=== PATIENT | female | born 1960 ===

== ENCOUNTER 2017-10-11 12:40 | Inpatient (IN) | payer OTHER ==
[~2017-10-11] VITALS: Ht 165.1 cm; Wt 61.2 kg
[2017-10-11] MEDS ORDERED: ACET-2605 PO (12:50)
[2017-10-11] MEDS ORDERED: NITR100C11 PO (12:51)
[2017-10-11] MEDS ORDERED: PHEN-705 PO (12:51)
[2017-10-11] MEDS ORDERED: ONDANSETRON IV *ER 4 MG/2 ML VIAL IV ONE (13:00)
[2017-10-11] MEDS ORDERED: IV NS 1000 ML 1,000 ML IV ONE (13:00)
[2017-10-11] MEDS ORDERED: ACETAMINOPHEN 650 MG/20.3 ML LIQUID UDC PO ONE (13:00)
[2017-10-11 13:18] LABS: *BLOOD, URINE 2+ (NEGATIVE); *CLARITY,URINE CLOUDY (CLEAR); *COLOR,URINE ORANGE (YELLOW); *KETONES,URINE 2+ (NEGATIVE); *PROTEIN,URINE 2+ (NEGATIVE); LEUKOCYTE ESTERASE ,URINE 2+ (NEGATIVE); NITRITE, URINE POSITIVE (NEGATIVE); PH,URINE 5.5 (5.0-8.0); UGLUCOSE TRACE (NEGATIVE)
[2017-10-11 13:20] LABS: BASOPHILS % (AUTO) 0.2 % (0.0-2.0); EOSINOPHILS % (AUTO) 0.1 % (0.0-7.0); LYMPHOCYTES # (AUTO) 0.9 K/uL (20.0-40.0); LYMPHOCYTES % (AUTO) 11.2 % (20.5-51.5); MEAN CORPUSCULAR HEMOGLOBIN 29.1 uug (24.7-32.8); MEAN CORPUSCULAR HGB CONC 34 g/dL (32.3-35.6); MEAN CORPUSCULAR VOLUME 85.2 fL (75.5-95.3); MONOCYTES # (AUTO) 0.5 K/uL (2.0-10.0); MONOCYTES % (AUTO) 6.7 % (0.0-11.0); NEUTROPHILS # (AUTO) 6.5 K/uL (1.8-8.9); NEUTROPHILS % (AUTO) 81.8 % (38.5-71.5); PLATELET COUNT (AUTO) 160 K/uL (179-408); RED BLOOD CELL COUNT(AUTO) 4.46 MIL/uL (3.63-4.92); WHITE BLOOD COUNT (AUTO) 7.9 K/uL (3.8-11.8)
[2017-10-11] MEDS ORDERED: ACETAMINOPHEN ES 500 MG TABLET ONE ×2 (13:24→13:25)
[2017-10-11] MEDS ORDERED: ONDANSETRON 4 MG/2 ML VIAL ONE (13:24)
[2017-10-11 13:25] LABS: *BILIRUBIN,URIN NEGATIVE (NEGATIVE)
[2017-10-11 13:26] LABS: CREATININE 1.1 mg/dL (0.6-1.3); POTASSIUM 3.3 mmol/L (3.5-5.1)
[2017-10-11 13:31] LABS: TOTAL PROTEIN, SERUM 7.8 g/dL (6.4-8.2)
[2017-10-11 13:34] LABS: BACTERIA,URINE MODERATE /HPF (NONE SEEN); SQUAMOUS EPITHELIAL CELL,UR FEW /HPF (NONE SEEN); WBC,URINE TNTC /HPF (0-3)
[2017-10-11] MEDS ORDERED: CEFTRIAXONE 1 G in IV DEXTROSE 5% 50 ML IV ONE (14:30)
[2017-10-11] MEDS ORDERED: IV NS 1000 ML 1,000 ML IV PRN ×2 (14:45→16:01)
[2017-10-11] MEDS ORDERED: POTASSIUM CHLORIDE 20 MEQ TAB.PRT.SR PO ONE (14:45)
[2017-10-11] MEDS ORDERED: CEFTRIAXONE 1 G VIAL ONE (14:49)
--- NOTE | 2017-10-11 14:55 | NUR ---
PT WALKED TO BATHROOM W/ STEADY GAIT.
[2017-10-11] MEDS ORDERED: POTASSIUM CHLORIDE 20 MEQ TAB.PRT.SR ONE (15:00)
[2017-10-11 16:02] VITALS: BP 85/50
[2017-10-11 16:04] VITALS: BP 85/50
[2017-10-11] MEDS ORDERED: HYDROCODONE/APAP 5-325MG TABLET PO PRN (16:15)
[2017-10-11] MEDS ORDERED: HYDROCODONE/APAP 10-325 MG TABLET PO PRN (16:15)
[2017-10-11] MEDS ORDERED: ONDANSETRON 4 MG/2 ML VIAL IV PRN (16:15)
[2017-10-11] MEDS ORDERED: Z GUARD REMEDY PASTE 57 GM TUBE TOP PRN (16:15)
[2017-10-11] MEDS ORDERED: MAGNESIUM HYDROXIDE 30 ML LIQUID UDC PO PRN (16:15)
[2017-10-11] MEDS: CEFTRIAXONE 1 G in IV DEXTROSE 5% 50 ML IV SCH (18:31)
--- NOTE | 2017-10-11 18:49 | NUR ---
Patient admitted from ER alert and oriented. no pain noted. Frequently urinated and clear urine output no pain.
[2017-10-11 20:00] VITALS: BP 85/45
--- NOTE | 2017-10-11 20:00 | NUR ---
Pt noted to have BP 85/45 HR 75. Pt is alert, responsive, no c/o of SOB/chest pain/nausea/vomiting. HOB down as tolerated. MD notified. Bolus 500ml given per ZOLTAN Issa's order. Will reassess and monitor.
[2017-10-11 20:30] VITALS: BP 92/46
--- NOTE | 2017-10-11 20:30 | NUR ---
Reassessed pt's BP 92/46. Interventions effective. Patient is alert and responsive, in no distress. MD notified.
[2017-10-11] MEDS ORDERED: IV NORMAL SALINE 500 ML IV ONE (20:45)
[2017-10-11] MEDS: MORPHINE SULFATE 2 MG/1 ML DISP.SYRIN IV PRN (23:50)
--- NOTE | 2017-10-11 23:50 | NUR ---
Pt refused morphine. Prefers tylenol instead. Wasted morphine, witness by pharmacist in charge.
[2017-10-12] MEDS: MORPHINE SULFATE 2 MG/1 ML DISP.SYRIN IV PRN
[2017-10-12] MEDS: ACETAMINOPHEN 325 MG TABLET PO PRN ×3 (00:01→21:55)
[2017-10-12 05:21] VITALS: BP 92/47
--- NOTE | 2017-10-12 06:00 | NUR ---
Pt slept intermittently, in no acute distress. Tylenol administered effective, patient was able to sleep after taking Tylenol, no c/o of pain. Close monitoring of BP, MD aware. IVF infusing, no infiltration noted. Strict intake/output as ordered. Safety measures in place, call light within reach. Will continue to monitor.
[2017-10-12 06:57] LABS: BILIRUBIN,TOTAL 0.5 mg/dL (0.2-1.0); CREATININE 0.9 mg/dL (0.6-1.3); MAGNESIUM 1.9 mg/dL (1.8-2.4); PHOSPHOROUS 2.8 mg/dL (2.5-4.9); POTASSIUM 3.8 mmol/L (3.5-5.1); TOTAL PROTEIN, SERUM 6.2 g/dL (6.4-8.2)
[2017-10-12 06:58] LABS: BASOPHILS % (AUTO) 0.2 % (0.0-2.0); EOSINOPHILS # (AUTO) 0.1 K/uL (0.0-0.7); EOSINOPHILS % (AUTO) 1.1 % (0.0-7.0); HEMOGLOBIN 11.2 g/dL (10.9-14.3); LYMPHOCYTES % (AUTO) 27.5 % (20.5-51.5); MEAN CORPUSCULAR HGB CONC 34 g/dL (32.3-35.6); MEAN CORPUSCULAR VOLUME 85.9 fL (75.5-95.3); MONOCYTES # (AUTO) 0.9 K/uL (2.0-10.0); MONOCYTES % (AUTO) 12.8 % (0.0-11.0); NEUTROPHILS # (AUTO) 4.2 K/uL (1.8-8.9); NEUTROPHILS % (AUTO) 58.4 % (38.5-71.5); RED BLOOD CELL COUNT(AUTO) 3.87 MIL/uL (3.63-4.92); WHITE BLOOD COUNT (AUTO) 7.1 K/uL (3.8-11.8)
[2017-10-12 07:09] LABS: HEMATOCRIT 33.3 % (31.2-41.9)
[2017-10-12 07:10] LABS: PLATELET COUNT (AUTO) 134 K/uL (179-408)
[2017-10-12 09:52] LABS: BAND % (MANUAL) 2 % (0-10); EOSINOPHILS % (MANUAL) 1 % (0-8); LYMPHOCYTES % (MANUAL) 34 % (20-40); MONOCYTES % (MANUAL) 8 % (2-10); NEUTROPHILS % (MANUAL) 54 % (42-75)
[2017-10-12 09:58] LABS: REACTIVE LYMPHOCYTES 1 % (0-0)
[2017-10-12] MEDS ORDERED: IV NS 1000 ML 1,000 ML IV PRN (10:18)
[2017-10-12 11:16] VITALS: BP 94/57
[2017-10-12 15:24] VITALS: BP 102/40
[2017-10-12] MEDS: CEFTRIAXONE 1 G in IV DEXTROSE 5% 50 ML IV SCH (17:23)
[2017-10-12 19:05] VITALS: BP 102/56
--- NOTE | 2017-10-13 | NUR ---
Pt's IV infiltrated, IV site intact, no redness. Pt refused to have another IV insertion. Pt stated "I will be discharged today so what is the point?" "I've been given a lot of bags of fluid, I've had enough". Discussed pt regarding importance of an IV access but pt still refused. Pt's intake of fluid is adequate and pt is urinating. Will continue to monitor.
[2017-10-13 04:05] VITALS: BP 92/44
--- NOTE | 2017-10-13 05:56 | NUR ---
Pt slept intermittently, in no acute distress. No significant change of condition throughout shift. VS stable, pt afebrile. Safety measures in place. Will continue to monitor.
[2017-10-13 07:19] LABS: CREATININE 0.7 mg/dL (0.6-1.3); POTASSIUM 3.8 mmol/L (3.5-5.1)
--- NOTE | 2017-10-13 07:30 | NUR ---
PT RECEIVED IN BED SLEEPING ,NO C/O PAIN NOTED.PT IS AXOX4 CALL LIGHT WITH IN REACH
[2017-10-13 07:47] LABS: BASOPHILS % (AUTO) 0.2 % (0.0-2.0); EOSINOPHILS # (AUTO) 0.1 K/uL (0.0-0.7); EOSINOPHILS % (AUTO) 2.4 % (0.0-7.0); HEMATOCRIT 32.9 % (31.2-41.9); LYMPHOCYTES # (AUTO) 1.4 K/uL (20.0-40.0); LYMPHOCYTES % (AUTO) 31.9 % (20.5-51.5); MEAN CORPUSCULAR HEMOGLOBIN 28.8 uug (24.7-32.8); MEAN CORPUSCULAR HGB CONC 34 g/dL (32.3-35.6); MEAN CORPUSCULAR VOLUME 85.6 fL (75.5-95.3); MONOCYTES # (AUTO) 0.4 K/uL (2.0-10.0); MONOCYTES % (AUTO) 10.3 % (0.0-11.0); NEUTROPHILS # (AUTO) 2.4 K/uL (1.8-8.9); NEUTROPHILS % (AUTO) 55.2 % (38.5-71.5); PLATELET COUNT (AUTO) 144 K/uL (179-408); RED BLOOD CELL COUNT(AUTO) 3.84 MIL/uL (3.63-4.92)
[2017-10-13 07:48] LABS: WHITE BLOOD COUNT (AUTO) 4.4 K/uL (3.8-11.8)
[2017-10-13 11:34] VITALS: BP 99/54
[2017-10-13] MEDS ORDERED: CEPH-570 PO (11:56)
--- NOTE | 2017-10-13 12:41 | NUR ---
D/C ORDERS RECEIVED NOTED AND CARRIED OUT.D/C INSTRUCTIONS AND EDUCATION GIVEN TO THE PT.PT LEFT THE FACILITY VIA PRIVATE CAR IN STABLE CONDITION.
== END 2017-10-13 12:45 | disposition home or self-care (01) | DRG 720 ==
LOC: ER 12:45 → TELE 15:19 → MED 15:44
PROVIDERS: ADMIT Nurse Practitioner Acute Care; ATTEND Nurse Practitioner Acute Care
DX: A41.9 Sepsis, unspecified organism (principal); E44.1 Mild protein-calorie malnutrition; E87.1 Hypo-osmolality and hyponatremia; N12 Tubulo-interstitial nephritis, not specified as acute or chronic; E87.6 Hypokalemia; E86.1 Hypovolemia; E88.09 Other disorders of plasma-protein metabolism, not elsewhere classified; R74.0 Nonspecific elevation of levels of transaminase and lactic acid dehydrogenase [LDH]; Z68.22 Body mass index [BMI] 22.0-22.9, adult; B96.20 Unspecified Escherichia coli [E. coli] as the cause of diseases classified elsewhere; N73.9 Female pelvic inflammatory disease, unspecified
CPT/HCPCS: 36415; 70030-TC; 83735; 84100; 85025; 87077; 87086; A4663; J0696; J2270; J2405; J7030; J7040; J7060